=== PATIENT | female | born 1960 | race American Indian/Alaskan Native ===

== ENCOUNTER 2018-12-27 00:41 | Emergency (ER) | payer MEDICARE ==
[2018-12-27 00:51] VITALS: BP 128/81
[2018-12-27 01:55] LABS: Bacteria,Urine 4+ /HPF (Negative); Bilirubin,Urine NEG (Negative); Blood,Urine LG (Negative); Color,Urine Yellow (Yellow); Mucus,Urine FEW /HPF; Urobilinogen,Urine < 2.0 mg/dL (<2.0)
[2018-12-27 01:59] LABS: WBC,Urine > 182.0 /HPF (0.0-6.0)
[2018-12-27] MEDS ORDERED: XYLOCAINE 1% MPF 5 mL INFILTRATI ONE (05:34)
[2018-12-27] MEDS ORDERED: ROCEPHIN IM ONE (05:34)
[2018-12-27] MEDS ORDERED: IBUPROFEN PO ONE (05:34)
--- NOTE | 2018-12-27 05:44 | Emergency Department Report ---
ED Female HPI - General Chief complaint: Urogenital-Female Stated complaint: PAINFUL URINATION Time Seen by Provider: 12/27/18 05:33 Source: patient Mode of arrival: Ambulatory Limitations: No Limitations - History of Present Illness Initial comments: Patient is a 58-year-old female who presents for urinary frequency, urgency and dysuria with occassional hematuria patient states symptoms started after using sex toy 2 days ago patient denies vaginal discharge and there is no abdominal pain no nausea vomiting no fever or chills there is no flow problem no back pain, patient states similar symptoms in past , MD Complaint: dysuria Onset/Timin -: days(s) Location: suprapubic Radiation: suprapubic Severity: moderate Severity scale (0 -10): 4 Quality: cramping Consistency: intermittent Improves with: none Worsens with: urination Are you Now?: No Last Menstrual Period: 11/10/15 EDC: 08/16/16 Associated Symptoms: dysuria, hematuria. denies: abdominal pain, nausea/vomiting, fever/chills - Related Data Sexually active: Yes Home Medications Medication Instructions Recorded Confirmed Last Taken Calcium Carbonate [Calcium] 600 mg PO DAILY 09/23/13 10/04/13 10/06/13 20:00 Multivitamin [Multi Vitamin Daily] 1 tab PO DAILY 09/23/13 10/04/13 10/06/13 13:00 Vit B12/Folic Acid/B6/Aa No.15 1 cap PO DAILY 09/23/13 10/04/13 10/06/13 18:00 [Glycotrol Capsule] Cholecalciferol (Vitamin D3) 1 tab PO DAILY 09/30/13 10/04/13 10/06/13 13:00 [Vitamin D] Previous Rx's Medication Instructions Recorded Last Taken Type Acetaminophen/Codeine [Tylenol #3] 1 tab PO Q6H PRN #12 tab 03/01/15 Unknown Rx Ibuprofen [Motrin 600 MG tab] 600 mg PO Q8H PRN #20 tablet 03/01/15 Unknown Rx cephALEXin [Keflex] 500 mg PO Q6H #40 capsule 03/01/15 Unknown Rx Ibuprofen 800 mg PO TID PRN #30 tablet 12/27/18 Unknown Rx Nitrofurantoin Monohyd/M-Cryst 100 mg PO BID 7 Days #14 capsule 12/27/18 Unknown Rx [Macrobid 100 mg Capsule] Allergies Allergy/AdvReac Type Severity Reaction Status Date / Time No Known Allergies Allergy Verified 12/27/18 00:44 ED Review of Systems ROS: Stated complaint: PAINFUL URINATION Other details as noted in HPI Constitutional: denies: chills, fever Eyes: denies: eye pain, eye discharge, vision change ENT: denies: ear pain, throat pain Respiratory: denies: cough, shortness of breath, wheezing Cardiovascular: denies: chest pain, palpitations Endocrine: no symptoms reported Gastrointestinal: denies: abdominal pain, nausea, vomiting, diarrhea Genitourinary: urgency, dysuria, frequency, hematuria. denies: discharge, abnormal menses, dyspareunia Musculoskeletal: denies: back pain, joint swelling, arthralgia Skin: denies: rash, lesions Neurological: denies: headache, weakness, paresthesias Psychiatric: denies: anxiety, depression Hematological/Lymphatic: denies: easy bleeding, easy bruising ED Past Medical Hx - Past Medical History Previous Medical History?: Yes Hx Hypertension: No Hx Deep Vein Thrombosis: Yes (RIGHT LEG "IN THE 80's") Hx Renal Disease: No Hx Psychiatric Treatment: Yes (depression) Additional medical history: neuropathy - Surgical History Past Surgical History?: Yes Hx Breast Surgery: Yes (left 2007) Additional Surgical History: neurostimulator placed in right hip 2013. - Social History Smoking Status: Never Smoker Substance Use Type: None - Medications Home Medications: Home Medications Medication Instructions Recorded Confirmed Last Taken Type Calcium Carbonate [Calcium] 600 mg PO DAILY 09/23/13 10/04/13 10/06/13 20:00 History Multivitamin [Multi Vitamin Daily] 1 tab PO DAILY 09/23/13 10/04/13 10/06/13 13:00 History Vit B12/Folic Acid/B6/Aa No.15 1 cap PO DAILY 09/23/13 10/04/13 10/06/13 18:00 History [Glycotrol Capsule] Cholecalciferol (Vitamin D3) 1 tab PO DAILY 09/30/13 10/04/13 10/06/13 13:00 History [Vitamin D] Acetaminophen/Codeine [Tylenol #3] 1 tab PO Q6H PRN #12 tab 03/01/15 Unknown Rx Ibuprofen [Motrin 600 MG tab] 600 mg PO Q8H PRN #20 tablet 03/01/15 Unknown Rx cephALEXin [Keflex] 500 mg PO Q6H #40 capsule 03/01/15 Unknown Rx Ibuprofen 800 mg PO TID PRN #30 tablet 12/27/18 Unknown Rx Nitrofurantoin Monohyd/M-Cryst 100 mg PO BID 7 Days #14 capsule 12/27/18 Unknown Rx [Macrobid 100 mg Capsule] ED Physical Exam - General Limitations: No Limitations General appearance: alert, in no apparent distress - Head Head exam: Present: atraumatic, normocephalic - Eye Eye exam: Present: normal appearance, PERRL, EOMI Pupils: Present: normal accommodation - ENT ENT exam: Present: normal exam, normal orophraynx, mucous membranes moist, TM's normal bilaterally, normal external ear exam - Neck Neck exam: Present: normal inspection, full ROM. Absent: tenderness, lymphadenopathy - Respiratory Respiratory exam: Present: normal lung sounds bilaterally. Absent: respiratory distress, wheezes, stridor - Cardiovascular Cardiovascular Exam: Present: regular rate, normal rhythm, normal heart sounds. Absent: systolic murmur, diastolic murmur, rubs, gallop - GI/Abdominal GI/Abdominal exam: Present: soft, normal bowel sounds. Absent: distended, tenderness, guarding, rebound, rigid, bruit, hernia - Rectal Rectal exam: Present: deferred - External exam: Present: other (deferred per patient) - Extremities Exam Extremities exam: Present: normal inspection, full ROM, normal capillary refill. Absent: tenderness - Back Exam Back exam: Present: normal inspection, full ROM. Absent: tenderness, CVA tenderness (R), CVA tenderness (L), muscle spasm, rash noted - Neurological Exam Neurological exam: Present: alert, oriented X3, CN II-XII intact, normal gait - Psychiatric Psychiatric exam: Present: normal affect - Skin Skin exam: Present: warm, dry, intact, normal color. Absent: rash ED Course Vital Signs 12/27/18 12/27/18 00:45 00:47 Temperature 98.2 F 98.2 F Pulse Rate 67 64 Respiratory 16 16 Rate Blood Pressure 128/81 128/81 O2 Sat by Pulse 97 98 Oximetry ED Medical Decision Making - Lab Data Labs 12/27/18 01:22 Urine Color Yellow Urine Turbidity Cloudy Urine pH 5.0 Ur Specific [place] 1.025 Urine Protein 100 mg/dl Urine Glucose (UA) Neg Urine Ketones Neg Urine Blood Lg Urine Nitrite Pos Urine Bilirubin Neg Urine Urobilinogen < 2.0 Ur Leukocyte Esterase Lg Urine WBC (Auto) > 182.0 H Urine RBC (Auto) 63.0 U Epithel Cells (Auto) 1.0 Urine Bacteria (Auto) 4+ Urine WBC Clumps 3+ Urine Mucus Few - Medical Decision Making ua: pos for nitrate, luek, wbc, plan : rocephin IM x 1, dc to home with rx for macrobid po bid x 7 days pt will follow up with pcp in 2 days pt given referral to same in 2 days , pt will return to ed if symptoms worsen. pt for dc to home in stable condition at this time. Critical care attestation.: If time is entered above; I have spent that time in minutes in the direct care of this critically ill patient, excluding procedure time. ED Disposition Clinical Impression: UTI (urinary tract infection) Qualifiers: Urinary tract infection type: acute cystitis Hematuria presence: without hematuria Qualified Code(s): N30.00 - Acute cystitis without hematuria Disposition: DC-01 TO HOME OR SELFCARE Is pt being admited?: No Does the pt Need Aspirin: No Condition: Stable Instructions: Urinary Tract Infection in Women (ED) Prescriptions: Ibuprofen 800 mg PO TID PRN #30 tablet PRN Reason: pain fever Nitrofurantoin Monohyd/M-Cryst [Macrobid 100 mg Capsule] 100 mg PO BID 7 Days #14 capsule Referrals: JOYCE PERDOMO MD, PHD [Primary Care Provider] - 3-5 Days Forms: Work/School Release Form(ED) Time of Disposition: 05:59
== END 2018-12-27 06:04 | disposition home or self-care (01) ==
LOC: ED 00:41
DX: N30.01 Acute cystitis with hematuria (principal); G62.9 Polyneuropathy, unspecified; Z86.718 Personal history of other venous thrombosis and embolism
CPT/HCPCS: 81001; 96372; 99283; J0696